=== PATIENT | female | born 1935 | race Caucasian/White ===

== ENCOUNTER → 2017-07-11 | Outpatient (CLI) | payer MEDICARE, OTHER ==
[~2017-07-11] MED LIST: ALEVE220 MG PO; ELIQUIS2.5 MG PO; MULTIPLE VITAM1 EAC2 PO; OXYCODONE HCL 55 MG PO; PRAVACHOL40 MG PO
== END ==
LOC: M.RAD 09:32
DX: M17.0 Bilateral primary osteoarthritis of knee (principal)

== ENCOUNTER → 2017-10-16 | Outpatient (CLI) | payer MEDICARE, OTHER | LOC: M.RAD 09:43 | DX: Z12.31 Encounter for screening mammogram for malignant neoplasm of breast (principal); Z85.3 Personal history of malignant neoplasm of breast ==

== ENCOUNTER 2017-12-03 07:00 | Inpatient (IN) | payer MEDICARE, OTHER ==
[2017-11-22 09:02] LABS: ABSOLUTE BASOPHILS 0.1 thou/uL (0.0-0.2); ABSOLUTE EOSINOPHILS 0.2 thou/uL (0.0-0.7); ABSOLUTE LYMPHOCYTES 1.6 thou/uL (0.8-5.3); ABSOLUTE MONOCYTES 0.8 thou/uL (0.0-1.2); ABSOLUTE NEUTROPHILS 5.2 thou/uL (1.6-8.1); BASOPHILS 1.3 %; EOSINOPHILS 2.7 %; HEMATOCRIT 42.6 % (37.0-47.0); LYMPHOCYTES 20.6 %; MCH 30.2 pg (26.0-34.0); MCHC 32.9 g/dL (28.0-37.0); MCV 91.6 fL (80.0-100.0); MONOCYTES 9.7 %; MPV 8.5 fl. (7.2-11.1); NUCLEATED RBCS 0 /100WBC; PLATELET COUNT* 317 thou/uL (150-400); POLYS 65.7 %; RBC 4.65 mil/uL (4.20-5.00); RDW-CV 15.2 % (10.5-14.5); WBC 7.9 thou/uL (4.0-11.0)
[2017-11-22 09:10] LABS: APTT 24.9 Seconds (25.0-31.3); PROTIME 9.5 Seconds (9.20-11.50)
[2017-11-22 09:22] LABS: ALBUMIN 3.3 g/dL (3.4-5.0); CALCIUM 9.5 mg/dL (8.5-10.1); CREATININE 0.9 mg/dL (0.6-1.3); TOTAL BILIRUBIN 0.3 mg/dL (<0.1-1.0); TOTAL PROTEIN 7.5 g/dL (6.4-8.2)
[2017-11-22 10:10] LABS: ESR (SEDRATE) 40 mm/hr (0-30)
--- NOTE | 2017-11-22 11:42 | EKG ---
[place] [address] ELECTROCARDIOGRAM REPORT Name: LUCIO STILES Room: PRE IN [facility]#: [id number] Admission: Attend Phys: Lele Richard Discharge: Date of : 35 Report #: [id number] THIS REPORT FOR: //name// [facility] Test Date: 2017-11-22 Test Time: 09:24:52 Pat Name: LUCIO STILES Department: Room: Gender: F Supply Chain Intern: : 1935 Requested By: Akbar Griffin Order Number: [id number] Reading MD: Bassem Lama Measurements Intervals Jones Rate: 80 P: -28 NH: 119 QRS: 68 QRSD: 101 T: 26 QT: 359 QTc: 415 Interpretive Statements Sinus rhythm Borderline short NH interval RSR' in V1 or V2, right VCD or RVH No previous ECG available for comparison Electronically Signed On 11-22-2017 11:42:09 CDT by Bassem Lama [email or web address] <ELECTRONICALLY SIGNED> By: Bassem Lama MD, [facility] 11/22/17 1142 D: 08/923 3 Bassem Lama MD, FACC /EPI
[~2017-12-03] VITALS: Ht 152.4 cm; Wt 70.3 kg
[~2017-12-03 07:00] MED LIST changes: -ELIQUIS2.5 MG PO; -OXYCODONE HCL 55 MG PO
[2017-12-03 12:18] VITALS: BP 126/67
[2017-12-03 16:00] VITALS: BP 125/74
[2017-12-03 17:36] VITALS: BP 111/66
--- NOTE | 2017-12-03 17:42 | NUR ---
PATIENT CAME TO THE FLOOR FROM THE OR TODAY IN STABLE CONDITION. SOME MILD PAIN THAT IS TOLERABLE. VITAL SIGNS STABLE ON 2 LITERS OF OXYGEN THROUGH NASAL CANNULA, CONTINUOUS PULSE OXIMETER IN PLACE. ROOM ORIENTATION AND ASSESSMENT DONE, QUESTIONS ANSWERED FOR PATIENT AND FAMILY. CALL LIGHT IS IN REACH, WILL CONTNIUE TO MONITOR.
[2017-12-03 20:00] VITALS: BP 118/60
[2017-12-03 23:36] VITALS: BP 138/74
[2017-12-04 03:47] VITALS: BP 100/67
[2017-12-04 04:27] LABS: HEMATOCRIT 36.2 % (37.0-47.0); HEMOGLOBIN 11.5 gm/dL (12.0-15.0)
--- NOTE | 2017-12-04 04:28 | NUR ---
PATIENT ALERT AND ORIENTED X4. UP WITH ASSIST X1 TO BSC, VOIDING ADEQUATELY. TYLENOL GIVEN X1 FOR HEADACHE. PATIENT DENIES NEED FOR PAIN MEDICATION FOR KNEE AT THIS TIME. DRESSING TO RIGHT KNEE CLEAN, DRY AND INTACT WITH ICE PACK IN PLACE. SMALL EMESIS X2, ZOFRAN GIVEN TO GOOD EFFECT. VITALS STABLE. WILL CONTINUE TO MONITOR.
--- NOTE | 2017-12-04 09:53 | NUR ---
O.T. WILL DEFER TO P.T. AT THIS TIME. PLEASE WRITE NEW ORDERS IF NEEDED.
[2017-12-04 10:36] VITALS: BP 106/53
--- NOTE | 2017-12-04 11:45 | NUR ---
MET WITH PT. SHE IS NORMALLY INDEPENDENT. LIVES IN A [place]. HAS A WALKER AND CANE. USES CANE SOMETIMES. IF DISCHARGED TOMORROW, D-I-L WILL STAY THE NIGHT WITH HER. PT.'S DAUGHTER FROM [place] IS COMING SUNDAY TO STAY FOR A WEEK WITH HER. SHE DID OUTPT.THERAPY AT [facility] IN [place]. SHE PLANS TO GO BACK THERE FOR OUTPT.THERAPY AT DISCHARGE. HER DAUGHTER WILL DRIVE HER. AFTER HER DAUGHTER GOES BACK HOME, D-I-L WILL DRIVE HER TO THERAPY. DISCUSSED ELIQUIS. HER PHARMACY IS [facility] IN [place], IF SHE DOES NOT USE MAIL ORDER. CM WILL CALL IN PRESCRIPTION TO CHECK COPAY FOR ELIQUIS.
[2017-12-04 15:50] VITALS: BP 102/48
--- NOTE | 2017-12-04 16:45 | NUR ---
ASSUMED CARE OF PATIENT AFTER MORNING REPORT. ALERT AND ORIENTED X4. ASSESSMENT COMPLETED AND CHARTED. VSS ON ROOM AIR. NO COMPLAINTS OF SOA THIS SHIFT. SOME COMPLAINTS OF NAUSEA, NO VOMITING AND NO NEED FOR MEDICATION INTERVENTION. PAIN HAS BEEN MANAGED WITH PAIN MEDICATION. PATIENT WROKED VERY WELL WITH THERAPIES TODAY. FLUIDS DISCONTINUED AND ANTIBIOTICS INFUSED ORDERED. PATIENT WILL DISCHARGE HOME IN THE AM. HOURLY ROUNDS MAINTAINED, CALL LIGHT WITHIN REACH, NURSING WILL CONTINUE TO MONITOR.
--- NOTE | 2017-12-04 17:46 | NUR ---
PATIENTS IV INFILTRATED BEFORE LAST ANTIBIOTIC COULD BE INFUSED. DESK MONITOR ORTHO CALLED AND OK THAT LAST DOSE NOT GIVEN, ALSO OK TO LEAVE IV OUT. PER DR HORN.
[2017-12-04 20:00] VITALS: BP 123/46
[2017-12-04 23:51] VITALS: BP 123/60
--- NOTE | 2017-12-05 04:30 | NUR ---
PATIENT REMAINS ALERT AND ORIENTED X4. UP WITH ASSIST X1, TOLERATED WELL. PAIN CONTROLLED WITH ORAL MEDICATIONS. DRESSING TO RIGHT KNEE IS CLEAN, DRY AND INTACT WITH ICE PACK IN PLACE. VITALS STABLE ON ROOM AIR. WILL CONTINUE TO MONITOR.
[2017-12-05 04:31] LABS: HEMATOCRIT 31.8 % (37.0-47.0); HEMOGLOBIN 10.5 gm/dL (12.0-15.0)
[2017-12-05 04:50] VITALS: BP 127/43
[2017-12-05 07:30] VITALS: BP 132/64
--- NOTE | 2017-12-05 09:14 | NUR ---
I have reviewed the documentation by MICAH CASTANON from 12/04/17 to 12/04/17 and I concur with it. ANNETTE, LISA
[2017-12-05 09:45] VITALS: BP 132/64
[2017-12-05 10:35] VITALS: BP 132/64
--- NOTE | 2017-12-05 11:00 | NUR ---
CALLED IN PRESCRIPTION FOR ELIQUIS, WRITTEN, TO PT.'S PHARMACY-[facility] IN [place]. PHARMACIST SAID THEY DO NOT HAVE PT'S INSURANCE INFORMATION ON FILE. NOTIFIED PT.AND DAUGHTER IN [place]. EXPLAINED TO TAKE INSURANCE DRUG CARD TO PHARMACY. IF SHE FEELS COPAY ON ELIQUIS IS TOO EXPENSIVE, TO CALL [facility] AND THEY WOULD NOTIFY DR.TO GET SOMETHING LESS EXPENSIVE. GAVE THEM PHONE NUMBER FOR [facility]. PT.CONTINUES TO WANT TO DO OUTPT.THERAPY AT [facility] IN [place]. WILL FAX ORDERS. THEY WILL CALL HER FOR APPT. SET UP. SHE HAD NO FURTHER QUESTIONS FOR CM.
[2017-12-05] MEDS ORDERED: OXYCODONE HCL 55 MG PO (11:17)
[2017-12-05] MEDS ORDERED: ELIQUIS2.5 MG PO (11:18)
--- NOTE | 2017-12-05 12:41 | NUR ---
PATIENT A&OX4, ROOM AIR, NO IV ACCESS. UP WITH ASSISTX1 WITH WALKER AND GIATBELT. WALKER FROM HOME. MEPLEX DRSG TO RIGHT KNEE C/D/I. MORINING THERAPY COMPLETED, TOLERATED WELL. C/O PAIN RIGHT KNEE, RELEIF WITH MEDICATION AND COLD PACKS APPLIED. PATIENT DISCHARGED. REVIEWED PAPERWORK WITH PATIENT WHILE DAUGHTER AT BEDSIDE. VERBALIZES UNDERSTANDING, ALL QUESTIONS AND CONCERNS ANSWERED. LEFT UNIT AT 1235 VIA W/C WITH ALL BELONGIGNS. NOTHING LEFT BEHIND. NO OTHER CONCERNS. APPROPRAITE AND COOPORATIVE WITH CARE.
--- NOTE | 2017-12-13 17:44 | OP ---
[address] [address] OPERATIVE REPORT Name: LUCIO STILES Room: [address]#: [id number] Admission: 12/03/17 Attend Phys: Lele Richard Discharge: 12/05/17 Date of : 35 Report #: [id number] THIS REPORT FOR: //name// CC: Yuan Solis DICTATED BY: Marcelino Bryant DO DATE OF SERVICE: 12/03/2017 PREOPERATIVE DIAGNOSIS: Right knee severe degenerative joint disease. POSTOPERATIVE DIAGNOSIS: Right knee severe degenerative joint disease. PROCEDURE: Right total knee arthroplasty. SURGEON: Akbar Griffin DO. ANIMAL HOSPITAL CLERK: Marcelino Bryant Do, and Dr. Omega Bhandari DO. ANESTHESIA: General with adductor canal block as well as local. ESTIMATED BLOOD LOSS: 175 mL. COMPLICATIONS: None. SPECIMEN: None. DRAINS: None. TOURNIQUET TIME: Not used. CONDITION: The patient is stable to PACU. IMPLANTS: Right total knee arthroplasty system using the [employer] system with the following components. 1. A size 3 posterior stabilized right femur. 2. A size 3 fixed cruciate tibial plate. 3. A size 15 posterior stabilized polyethylene liner. 4. One bag of Palacos bone cement. INDICATIONS: The patient is a pleasant 82-year-old female who had presented to clinic initially for ongoing right knee pain that had been progressively worsening despite conservative treatment measures. The patient failed these measures including activity modification, oral anti-inflammatories, weight loss, [facility] [address] [place] [address] OPERATIVE REPORT Name: LUCIO STILES Room: [address]#: [id number] Admission: 12/03/17 Attend Phys: Lele Richard Discharge: 12/05/17 Date of : 35 Report #: [id number] for over a greater duration of 3 months. The symptoms were clearly affecting the quality of life for the patient and she wanted to proceed with a right total knee arthroplasty. All risks, benefits, complications and indications were thoroughly discussed with the patient, both in clinic as well as preoperatively and this includes but is not limited to infection, neurovascular injury, continued pain after the surgery, need for revision surgery, and even stiffness that requires manipulation under anesthesia, intraoperative fracture, failure of the implant. DVT, PE, complications of anesthesia as well as any other imponderables and even . The patient demonstrated understanding of these complications and wanted to proceed. DESCRIPTION OF PROCEDURE: The patient was met within the preoperative bay where the operative site was marked and consent was signed and placed in the chart. The patient was then taken to the operative suite and placed supine on a well-padded table. The right lower extremity was fixated with a tourniquet in the standard fashion and the tourniquet was not insufflated at all during the case. Then, the right lower extremity was sterilely prepped and draped in the standard fashion. Following this, a timeout was performed identifying the correct patient, procedure, operative site and confirmation of antibiotics that were given in the form of 2 grams of Ancef preoperatively and everyone in in the room was in agreement. We elected to proceed at this time and a standard midline incision was marked and using a 10 blade scalpel, we made a midline incision down through the skin and subcutaneous tissue. Following that, medial and lateral subcutaneous flaps were developed and a second knife was used to make a standard medial parapatellar arthrotomy. This was taken down through the joint and the anterior horn of the medial and lateral meniscus was excised as well as medial and lateral periosteal flaps were developed. Next, the knee was brought into extension and the patella was everted and the knee was then brought into full flexion. The Hoffa's fat pad and any remaining meniscus from the anterior horn of the medial lateral side were removed. A drill was used to find the intramedullary canal of the femur and following that, an intramedullary femoral cutting guide was then inserted in order to make the distal femoral cut. We elected to take a standard 9 mm cut from the distal femur. Once this was completed, we then turned our attention to the tibia and placed the extramedullary tibial guide. The guide was aligned with the medial third of the tibial tubercle as well as the second ray distally following the crest of the tibia and appropriate slope and depth of cut was established. We elected to do a 10-cm cut from the highest point on the lateral side, this was done in 5 degrees of valgus. The guide was pinned in place and a saw was used to make the proximal tibial cut. The cut was removed and the knee was brought into full extension to verify that the 9 mm spacer would fit. Once we verified that the distal femur and tibial cuts were adequate, we brought the knee back into flexion and did the AP sizer for the 4-in-1 cutting block. It was found to be between a size 4 or 3. Therefore, we elected to start with a size 4. The cutting block was placed and the anterior cut was performed and it was found that additional resection was needed. Therefore, we switched to a [place] [address] OPERATIVE REPORT Name: LUCIO STILES Room: [address]#: [id number] Admission: 12/03/17 Attend Phys: Lele Richard Discharge: 12/05/17 Date of : 35 Report #: [id number] size 4 was removed and the size 3 cutting block was placed and pinned into position and the anterior, posterior and chamfer cuts were then completed and it was found to be an appropriate size. We then directed our attention back to the soft tissue and removed the excess meniscus. I was present as well as any osteophytes that were present were removed with rongeur. Then, we placed the tibial size guide and found that a size 3 tibia provided adequate coverage. This was pinned into position and any excess tibial bone was removed with a rongeur around the tibial guide. We then placed the size [address] as well as trialed a size 11 poly. This was taken through range of motion and was found to be lax both medial and laterally. Therefore, we elected to go up a size and ultimately found a size 15 poly to be quite stable. We then turned our attention to the patella and found it to have very minimal or low wear, only grade 2 chondromalacia. Therefore, we elected to not proceed with patellar resurfacing. At this point, we performed the box cut and reamer in the distal femur and then the femoral trial was removed as well as the poly trial. Next, the tibia was reamed and a cruciform punch was used. Next, the tibial trial was removed. The bone ends were then thoroughly pulsatile lavaged with saline and the Palacos bone cement was mixed and prepped on the back table. We used one bag. At this time, we then began the cementing process that was carried out in the standard fashion, first with the tibia and backing it into place and removing any excess cement followed by the femur. We then trialled a size 13 and 15 trial poly one more time just to verify adequate stability and found that the 15 was more stable in extension and flexion as well as a varus and valgus stress testing while still allowing full range of motion. Therefore, a size 15 poly was inserted. The knee was then brought into 90 degrees of flexion and allowed the cement to harden and cure. The joint was thoroughly pulsatile lavaged again and 1 gram of vancomycin powder was placed within the joint. We used #1 Vicryl in [id number] fashion to close the capsule. Once this was well approximated, we used a running #1 Quill to finish the capsular closure. The subcutaneous tissue was then thoroughly irrigated and we used 2-0 Monocryl to approximate the wound subcutaneously followed by 3-0 Stratafix and Dermabond glue. Mepilex dressing was placed followed by PAPITO kikoe. The needle and sponge counts were all correct x 2 postoperatively. Per PQRS guidelines, the patient will receive 2 more doses of Ancef every 8 hours following the procedure and will be given chemical and mechanical DVT prophylaxis in the form of Eliquis 2.5 mg twice a day. <ELECTRONICALLY SIGNED> By: Akbar Griffin DO 12/13/17 1744 [id number] 1823Akbar Griffin DO /jose armando
== END 2017-12-05 12:35 | disposition home or self-care (01) | DRG 470 ==
LOC: M.PRE 07:00 → M.TBA 11:00 → M.ORTHSURG 11:00 → M.PRE 13:11 → M.ORTHSURG 17:02
PROVIDERS: Orthopaedic Surgery; ADMIT Internal Medicine
PROC: 0SRC0J9 Replacement of Right Knee Joint with Synthetic Substitute, Cemented, Open Approach (ICD-10-PCS; principal; 2017-12-03)
DX: M17.11 Unilateral primary osteoarthritis, right knee (principal); D62 Acute posthemorrhagic anemia; E78.5 Hyperlipidemia, unspecified; Z85.3 Personal history of malignant neoplasm of breast; Z90.11 Acquired absence of right breast and nipple; Z90.710 Acquired absence of both cervix and uterus; Z98.42 Cataract extraction status, left eye; Z98.41 Cataract extraction status, right eye